=== PATIENT | male | born 1940 | race Hispanic/Latino ===

== ENCOUNTER 2020-02-01 07:14 | Day surgery (SDC) | payer OTHER, MEDICARE ==
[2020-01-27 12:15] LABS: BASOPHILS % (AUTO) 0.9 % (0.0-5.0); EOSINOPHILS % (AUTO) 2.7 % (0.0-8.0); HEMATOCRIT 43.9 % (42-54); LYMPHOCYTES % (AUTO) 32.6 % (21.0-51.0); MEAN CORPUSCULAR HEMOGLOBIN 29.5 pg (27.0-33.0); MEAN CORPUSCULAR HGB CONC 33.3 g/dL (32.0-36.0); MEAN CORPUSCULAR VOLUME 88.7 fL (79-99); NEUTROPHILS % (AUTO) 55.5 % (40.0-77.0); PLATELET COUNT (AUTO) 202 K/uL (130-400); RED BLOOD CELL COUNT(AUTO) 4.95 MIL/uL (4.50-6.20); RED CELL DISTRIBUTION WIDTH 13.1 % (11.0-15.5); WHITE BLOOD COUNT (AUTO) 7.4 K/uL (4.8-10.8)
[2020-01-27 12:31] LABS: CREATININE 0.9 mg/dL (0.5-1.5)
[2020-01-29 10:04] VITALS: BP 131/87
[2020-02-01] VITALS (11 sets, daily range): BP systolic 109–135; BP diastolic 49–78
[~2020-02-01] VITALS: Ht 165.1 cm; Wt 79.4 kg
[2020-02-01] MEDS: CEFAZOLIN SODIUM 1 GM VIAL IVP SCH ×2 (06:00→09:40)
[~2020-02-01 07:14] MED LIST: ACET325C6 PO
[2020-02-01] MEDS ORDERED: LIDOCAINE HCL-MPF 0.5% 50ML VIAL IJ ONE (08:34)
[2020-02-01] MEDS ORDERED: LACTATED RINGERS 1000ML 1,000 ML IV ONE (08:44)
[2020-02-01] MEDS ORDERED: KETAMINE 50MG/ML SYRINGE 50 MG/ML DISP.SYRIN IV ONE (09:34)
[2020-02-01] MEDS ORDERED: MIDAZOLAM HCL 1 MG/ML 2ML VIAL ONE (09:36)
[2020-02-01] MEDS ORDERED: CEFAZOLIN SODIUM 1 GM VIAL ONE (09:46)
[2020-02-01] MEDS ORDERED: BUPIVACAINE/PF 0.25% 30ML VIAL IJ ONE (10:18)
[2020-02-01] MEDS ORDERED: CEPH500B PO (10:55)
[2020-02-01] MEDS ORDERED: TYL2 PO (10:55)
== END 2020-02-01 11:55 | disposition home or self-care (01) ==
LOC: DAH 07:14
PROVIDERS: ATTEND Orthopaedic Surgery
DX: G56.03 Carpal tunnel syndrome, bilateral upper limbs (principal); M19.90 Unspecified osteoarthritis, unspecified site; Z11.59 Encounter for screening for other viral diseases; Z85.9 Personal history of malignant neoplasm, unspecified; Z86.69 Personal history of other diseases of the nervous system and sense organs; Z79.01 Long term (current) use of anticoagulants; Z79.899 Other long term (current) drug therapy
CPT/HCPCS: 36415; 64721; 80048; 85025; A4215; A4221; A4222; A4223; A4663; A4930; A6223; J0690 ×2; J2250; J3490 ×3; J7120; U0003

== ENCOUNTER 2020-03-28 05:30 | Day surgery (SDC) | payer OTHER, MEDICARE ==
[2020-03-21 09:23] LABS: BASOPHILS % (AUTO) 1.3 % (0.0-5.0); EOSINOPHILS % (AUTO) 2.6 % (0.0-8.0); HEMATOCRIT 42.4 % (42-54); LYMPHOCYTES % (AUTO) 27.5 % (21.0-51.0); MEAN CORPUSCULAR HEMOGLOBIN 30.2 pg (27.0-33.0); MEAN CORPUSCULAR HGB CONC 33.5 g/dL (32.0-36.0); MEAN CORPUSCULAR VOLUME 90.2 fL (79-99); MONOCYTES % (AUTO) 6.9 % (3.0-13.0); NEUTROPHILS % (AUTO) 61.4 % (40.0-77.0); PLATELET COUNT (AUTO) 199 K/uL (130-400); RED CELL DISTRIBUTION WIDTH 12.7 % (11.0-15.5); WHITE BLOOD COUNT (AUTO) 6.1 K/uL (4.8-10.8)
[2020-03-21 09:34] LABS: CREATININE 0.9 mg/dL (0.5-1.5); POTASSIUM 4.2 mmol/L (3.5-5.1)
[2020-03-25 11:31] VITALS: BP 119/71
[2020-03-28] VITALS (15 sets, daily range): BP systolic 20–132; BP diastolic 54–82
[~2020-03-28] VITALS: Ht 164.1 cm; Wt 78.0 kg
[2020-03-28] MEDS: CEFAZOLIN SODIUM 1 GM VIAL IVP SCH ×2 (05:00→08:15)
[~2020-03-28 05:30] MED LIST changes: -ACET325C6 PO; +CEPH500B PO
[2020-03-28] MEDS ORDERED: LACTATED RINGERS 1000ML 1,000 ML IV ONE (06:17)
[2020-03-28] MEDS ORDERED: BUPIVACAINE/PF 0.25% 30ML VIAL IJ ONE (06:49)
[2020-03-28] MEDS ORDERED: CEFAZOLIN SODIUM 1 GM VIAL ONE (06:49)
[2020-03-28] MEDS ORDERED: LIDOCAINE PF 2% 5ML ABBOJECT ONE (07:32)
[2020-03-28] MEDS ORDERED: PROPOFOL 10 MG/ML 20ML VIAL IV ONE (07:32)
[2020-03-28] MEDS ORDERED: MIDAZOLAM HCL 1 MG/ML 2ML VIAL ONE (07:32)
[2020-03-28] MEDS ORDERED: DEXAMETHASONE SOD PHOSPHATE 10MG/ML 1ML VIAL ONE (07:32)
[2020-03-28] MEDS ORDERED: ONDANSETRON HCL 4 MG/2 ML VIAL ONE (07:33)
[2020-03-28] MEDS ORDERED: FENTANYL CITRATE PF 50 MCG/1 ML 2ML VIAL ONE (07:33)
[2020-03-28] MEDS ORDERED: SUCCINYLCHOLINE CHLORIDE 20 MG/ML 10 ML VIAL ONE (07:38)
[2020-03-28] MEDS ORDERED: DURAMORPH PF1 MG/ML 10ML AMP IV ONE (07:47)
[2020-03-28] MEDS ORDERED: KETOROLAC TROMETHAMINE 30MG/ML ONE (08:10)
[2020-03-28] MEDS ORDERED: PHENYLEPHRINE HCL 10 MG/ML 1ML VIAL IV ONE (08:22)
[2020-03-28] MEDS ORDERED: GLYCOPYRROLATE 1 MG/5 ML SYRINGE ONE (08:32)
[2020-03-28] MEDS ORDERED: ACET1TAB25 PO (09:03)
[2020-03-28] MEDS ORDERED: CEPH500B PO (09:03)
== END 2020-03-28 10:39 | disposition home or self-care (01) ==
LOC: DAH 05:30
PROVIDERS: ATTEND Orthopaedic Surgery
DX: G56.01 Carpal tunnel syndrome, right upper limb (principal); Z20.828 Contact with and (suspected) exposure to other viral communicable diseases; M19.90 Unspecified osteoarthritis, unspecified site
CPT/HCPCS: 36415 ×2; 64721; 80048; 85025; A4215; A4221; A4222; A4223; A4565; A4649; A4663; A4930; A6223; C9803; J0330; J0690 ×2; J1100; J1885; J2001; J2250; J2274; J2370; J2405; J2704; J3010; J3490 ×2; J7120 ×2; U0003; 93005

== ENCOUNTER → 2024-02-03 | Outpatient (CLI) | payer OTHER, MEDICARE ==
[~2024-02-03] MED LIST changes: +ACET-2079 PO
== END | disposition home or self-care (01) ==
LOC: RAH 13:54
PROVIDERS: ATTEND Orthopaedic Surgery
DX: M17.12 Unilateral primary osteoarthritis, left knee (principal); M25.762 Osteophyte, left knee; M16.12 Unilateral primary osteoarthritis, left hip
CPT/HCPCS: 73700